=== PATIENT | female | born 1970 | race Two or more races ===

== ENCOUNTER 2024-02-08 22:15 | Emergency (ER) | payer OTHER ==
[~2024-02-08] VITALS: Ht 160 cm; Wt 131.1 kg
[2024-02-08 23:16] LABS: BASOPHILS # (AUTO) 0.1 K/UL (0.0-0.2); BASOPHILS % (AUTO) 1.4 % (0.0-2.0); EOSINOPHILS # (AUTO) 0.1 K/uL (0.0-0.7); EOSINOPHILS % (AUTO) 1.2 % (0.0-7.0); HEMOGLOBIN 14.3 g/dL (10.9-14.3); LYMPHOCYTES # (AUTO) 1.3 K/uL (0.8-4.8); LYMPHOCYTES % (AUTO) 20.8 % (20.5-51.5); MEAN CORPUSCULAR HEMOGLOBIN 28.8 uug (24.7-32.8); MEAN CORPUSCULAR HGB CONC 34 g/dL (32.3-35.6); MEAN CORPUSCULAR VOLUME 84.6 fL (75.5-95.3); MONOCYTES # (AUTO) 0.3 K/uL (0.1-1.30); MONOCYTES % (AUTO) 5.4 % (0.0-11.0); NEUTROPHILS # (AUTO) 4.6 K/uL (1.8-8.9); NEUTROPHILS % (AUTO) 71.2 % (38.5-71.5); PLATELET COUNT (AUTO) 353 K/uL (179-408); RED BLOOD CELL COUNT(AUTO) 4.97 MIL/uL (3.63-4.92); RED CELL DISTRIBUTION WIDTH 13.5 % (12.3-17.7); WHITE BLOOD COUNT (AUTO) 6.4 K/uL (3.8-11.8)
[2024-02-08 23:29] LABS: DIFFERENTIAL COMMENT 1
[2024-02-08 23:33] LABS: *BILIRUBIN,URIN NEGATIVE (NEGATIVE); *BLOOD, URINE NEGATIVE (NEGATIVE); *CLARITY,URINE CLEAR (CLEAR); *COLOR,URINE YELLOW (YELLOW); *KETONES,URINE 2+ (NEGATIVE); *PROTEIN,URINE NEGATIVE (NEGATIVE); *UROBILINOGEN,URINE 0.2 E.U./dl (NORMAL); LEUKOCYTE ESTERASE ,URINE TRACE (NEGATIVE); NITRITE, URINE NEGATIVE (NEGATIVE); UGLUCOSE NEGATIVE (NEGATIVE)
[2024-02-08 23:34] LABS: CREATININE 1.1 mg/dL (0.6-1.3); POTASSIUM 3.1 mmol/L (3.5-5.1)
[2024-02-08 23:40] LABS: BACTERIA,URINE FEW /HPF (NONE SEEN); RBC,URINE 0-3 /HPF (0-3); SQUAMOUS EPITHELIAL CELL,UR MODERATE /HPF (NONE SEEN)
[2024-02-08 23:47] LABS: ALBUMIN 4.2 g/dL (3.4-5.0); BILIRUBIN,TOTAL 0.5 mg/dL (0.2-1.0); TOTAL PROTEIN, SERUM 8.4 g/dL (6.4-8.2)
[2024-02-09] MEDS ORDERED: POTASSIUM CHLORIDE 20 MEQ TAB.PRT.SR ONE (00:05)
[2024-02-09] MEDS: POTASSIUM CHLORIDE 20 MEQ TAB.PRT.SR PO ONE (00:07)
[2024-02-09] MEDS ORDERED: CLONIDINE HCL 0.1 MG TABLET ONE (00:08)
[2024-02-09] MEDS: CLONIDINE HCL 0.1 MG TABLET PO ONE (00:08)
[2024-02-09] MEDS ORDERED: AMLO-212 (01:14)
[2024-02-09] MEDS ORDERED: HALO5TAB12 (01:14)
[2024-02-09] MEDS ORDERED: QUET200T (01:14)
[2024-02-09] MEDS ORDERED: QUET100T (01:14)
[2024-02-09 01:57] VITALS: BP 156/82; O2SAT 100
== END 2024-02-09 01:56 | disposition home or self-care (01) ==
LOC: ER 22:18
DX: R07.89 Other chest pain (principal); Z79.899 Other long term (current) drug therapy; E11.9 Type 2 diabetes mellitus without complications
CPT/HCPCS: 36415; 71045; 84484; 85025; A4606; A4663

== ENCOUNTER 2024-09-23 21:28 | Emergency (ER) | payer OTHER ==
[~2024-09-23] VITALS: Ht 165.1 cm; Wt 88.9 kg
[~2024-09-23 21:28] MED LIST: AMLO-212; HALO5TAB12; QUET100T; QUET200T
[2024-09-24] MEDS ORDERED: KETOROLAC TROMETHAMINE 30 MG INJ ONE (00:51)
[2024-09-24] MEDS: KETOROLAC TROMETHAMINE 30 MG INJ IM ONE (00:58)
[2024-09-24] MEDS ORDERED: FLUT16SP16 BNOSTRILS (01:10)
[2024-09-24] MEDS ORDERED: NAPR-1009 PO (01:10)
[2024-09-24] MEDS ORDERED: BENZ1LOZ58 PO (01:10)
[2024-09-24 01:50] VITALS: BP 155/87; TEMP 98.2; O2SAT 98
== END 2024-09-24 01:51 | disposition home or self-care (01) ==
LOC: ER 21:28
DX: J02.9 Acute pharyngitis, unspecified (principal); B97.89 Other viral agents as the cause of diseases classified elsewhere; E11.65 Type 2 diabetes mellitus with hyperglycemia; I10 Essential (primary) hypertension; F29 Unspecified psychosis not due to a substance or known physiological condition; Z60.2 Problems related to living alone; Z90.49 Acquired absence of other specified parts of digestive tract; Z20.822 Contact with and (suspected) exposure to COVID-19
CPT/HCPCS: 99283; 87426; 87804 ×2; 82962; 86403; 87070; 96372; J1885; A4606; A4663